=== PATIENT | female | born 1985 | race Caucasian/White ===

== ENCOUNTER 2018-06-07 12:41 | Outpatient (CLI) | payer BC, SELFPAY ==
--- NOTE | 2018-06-07 12:46 | DI.RAD_ITS ---
SYMPTOMS/DIAGNOSIS: RT FOOT PAIN, M79.671 RIGHT FOOT: There is a fracture at the base of the 5th metatarsal, which is only slightly displaced. The fracture involves a small portion of the articular surface toward the base of the 4th metatarsal. No additional fractures are identified. IMPRESSION: Mildly displaced fracture of the base of the 5th metatarsal.
== END 2018-06-07 13:01 ==
PROVIDERS: PCP Internal Medicine; Visit Provider Family Medicine
DX: M79.671 Pain in right foot (principal); S92.351B Displaced fracture of fifth metatarsal bone, right foot, initial encounter for open fracture; Y99.9 Unspecified external cause status
CPT/HCPCS: 73630

== ENCOUNTER 2018-06-07 20:30 | Emergency (ER) | payer BC, SELFPAY ==
[2018-06-07 20:42] VITALS: BP 134/75; PULSE 79; RESP 16; TEMP 36.7; O2SAT 95
--- NOTE | 2018-06-07 20:44 | W.ED.GENAD ---
Discharge Plan Disposition Patient Disposition: HOME Condition: Stable Discharge Details Chief Complaint: Orthopedic Clinical Impression: Fracture of 5th metatarsal Primary Care Provider: Khalif Morris ED Provider: Kevin Nick Home Meds and New Rx's Prescriptions: No Action No Known Home Meds RF: 0 Discharge Instructions Instructions: Foot Fracture in Adults (ED) Additional Instructions: call orthopedics on Sunday for an appointment you can take 1000mg tylenol and 600mg ibuprofen every 6 hours for pain as needed Referrals: Leonardo Pizano MD [ [facility] STAFF PHYSICIAN] - Discharge Data Discharge Physician: Kevin Nick Medical Decision Making MDM Narrative Medical decision making narrative: 32 yo female states this morning she tripped while walking out to the car and hit her right foot on the ground. did not strike her head or have loc. She saw her pcp who ordered an xray showing a proximal 5th metacarpal fx, but she states no one ever called her with results and she was having pain so came here. The xray was reviewed by me and has proximal 5th metacarpal fx. Has no ankle pain even on rom so do not feel xrays of ankle indicated. Placed in walking boot and will provide crutches to use as needed, and have her f/u with ortho. She declined pain med prescription at this time Differential Diagnosis sprain,strain,fx HPI - General Adult General Mode of arrival: wheelchair. Date/Time Provider Initiated Documentation: 06/07/18 20:30. Limitations to Documentation: no limitations. Information obtained by: patient. History of Present Illness 32 year old F presents to the emergency department with the chief complaint of right foot pain, described as moderate, with intensity rated at 5. Quality is described as aching, and is localized to the right and lower extremity. Patient reports no radiation. Patient started experiencing this hour(s) (12) and it has been constant. Rest improves symptom(s), Movement worsens symptoms . Patient notes no other symptoms.. Patient did receive the following treatments prior to arrival, NSAID Related Data Home Medications Medication Instructions Recorded Confirmed Unknown [No Known Home Meds] 06/07/18 06/07/18 Allergies Allergy/AdvReac Type Severity Reaction Status Date / Time No Known Allergies Allergy Unverified 06/07/18 20:50 Review of Systems Review of Systems All systems reviewed & are unremarkable except as noted in HPI and below Constitutional Denies chills, Denies fever(s) and Denies weakness Eyes Patient Denies loss of vision ENT Denies change in voice Cardiovascular Denies chest pain and Denies dyspnea Respiratory Denies dyspnea Gastrointestinal Denies abdominal pain, Denies nausea and Denies vomiting Genitourinary Denies dysuria Musculoskeletal Denies joint swelling Integumentary/Breasts Denies rash Neurologic Denies loss of vision and Denies weakness Psychiatric Denies depression Endocrine Denies cold intolerance and Denies heat intolerance [facility] Social History Smoking/Tobacco Use Status: Never Exam Const General: no acute distress Orientation: alert HENMT Head: normal to inspection Ears: external ears normal General nose exam: external nose normal Mouth: moist mucous membranes Eyes General: appearance normal, both eyes and all related structures Neck Neck: normal visual inspection Resp Effort & Inspection: normal respiratory effort and able to speak in complete sentences Cardio Rate: regular rate Skin General skin exam: no rashes or lesions noted Neuro General: alert and oriented x3 Extrem General: normal capillary refill and other (pain over proximal 5th metatarsal, full rom of the ankle without pain and no pain toes, 2+ pulses) Psych Mental Status: mental status grossly normal
== END 2018-06-07 21:03 | disposition home or self-care (01) ==
LOC: ER 21:06
PROVIDERS: Emergency Provider Emergency Medicine; PCP Internal Medicine
DX: S92.354A Nondisplaced fracture of fifth metatarsal bone, right foot, initial encounter for closed fracture (principal); W01.0XXA Fall on same level from slipping, tripping and stumbling without subsequent striking against object, initial encounter
CPT/HCPCS: 29505; 99284; 99282; L4361

== ENCOUNTER 2018-06-26 09:35 | Outpatient (CLI) | payer BC, SELFPAY ==
--- NOTE | 2018-06-26 09:22 | DI.RAD_ITS ---
SYMPTOM/DIAGNOSIS: FRACTURE 5TH METATARSAL RIGHT FOOT: When compared with the previous study of 06/07/18 again noted is a mildly displaced fracture of the base of the 5th metatarsal.
== END 2018-06-26 09:55 ==
PROVIDERS: PCP Internal Medicine; Visit Provider Student in an Organized Health Care Education/Training Program
DX: S92.351D Displaced fracture of fifth metatarsal bone, right foot, subsequent encounter for fracture with routine healing (principal)
CPT/HCPCS: 73630

== ENCOUNTER 2021-04-28 15:58 | Outpatient (REF) | payer BC, SELFPAY ==
[2021-04-28 20:53] LABS: Abs Immature Grans 0.01 10^3/uL (0.0-0.06); Absolute Basophil Count 0.05 10^3/uL (0.0-0.2); Absolute Eosinophil Count 0.13 10^3/uL (0.0-0.7); Absolute Lymphocyte Count 1.57 10^3/uL (1.2-3.4); Absolute Monocyte Count 0.58 10^3/uL (0.1-0.8); Absolute Neutrophil Count 5.28 10^3/uL (1.2-6.7); Basophils % 0.7; Eosinophils % 1.7; HCT 42.8 % (36.0-46.0); HGB 14.2 g/dL (11.2-15.7); Immature Grans % 0.1; Lymphocytes % 20.6; MCH 28.8 pg (27.0-33.0); MCHC 33.2 % (32.0-36.0); MCV 86.8 fL (80-95); MPV 12.5 fL (8.0-11.0); Monocytes % 7.6; Neutrophils % 69.3; Nucleated RBC 0 %; Platelet Count 199 10^3/uL (130-400); RBC 4.93 10^6/uL (3.93-5.22); WBC 7.62 10^3/uL (4.4-10.8)
[2021-04-28 21:31] LABS: Iron 77 ug/dL (50-170); Total Iron Binding Capacity 371 ug/dL (250-450); Transferrin Sat 21 % (15-50)
[2021-04-28 21:37] LABS: TSH (W/Ref FT4) 0.87 uIU/mL (0.36-3.74)
== END 2021-04-28 15:59 | disposition home or self-care (01) ==
LOC: NCHCN 15:58
PROVIDERS: PCP Internal Medicine; Visit Provider Nurse Practitioner Family
DX: N92.6 Irregular menstruation, unspecified (principal); Z00.00 Encounter for general adult medical examination without abnormal findings; L68.0 Hirsutism; E66.9 Obesity, unspecified
CPT/HCPCS: 83540; 83550; 84443; 85025

== ENCOUNTER 2021-05-26 16:45 | Outpatient (REF) | payer BC, SELFPAY ==
[2021-05-26 14:09] LABS: BUN 9 mg/dL (7-18); CREATININE 0.6 mg/dL (0.55-1.02); Chloride 101 mmol/L (98-107); Glucose 214 mg/dL (74-106); Potassium 4.4 mmol/L (3.5-5.1); Sodium 138 mmol/L (136-145)
== END 2021-05-26 16:46 | disposition home or self-care (01) ==
LOC: NCHCN 16:45
PROVIDERS: PCP Internal Medicine; Visit Provider Nurse Practitioner Family
DX: E66.9 Obesity, unspecified (principal); L68.0 Hirsutism
CPT/HCPCS: 80048

== ENCOUNTER 2021-10-27 11:18 | Outpatient (REF) | payer BC, SELFPAY ==
[2021-10-27 16:00] LABS: Anion Gap 11.3 mmol/L (3-11); BUN 14 mg/dL (7-18); CO2 25.7 mmol/L (21.0-32.0); CREATININE 0.7 mg/dL (0.55-1.02); Calcium 9.2 mg/dL (8.5-10.1); Chloride 102 mmol/L (98-107); Glucose 279 mg/dL (74-106); Potassium 4.1 mmol/L (3.5-5.1); Sodium 139 mmol/L (136-145)
== END 2021-10-27 11:19 | disposition home or self-care (01) ==
LOC: NCHCN 11:18
PROVIDERS: PCP Internal Medicine; Visit Provider Nurse Practitioner Family
DX: R73.09 Other abnormal glucose (principal); E66.8 Other obesity; L68.0 Hirsutism
CPT/HCPCS: 80048

== ENCOUNTER 2022-01-24 16:10 | Outpatient (REF) | payer BC, SELFPAY ==
[2022-01-24 17:11] LABS: Hemoglobin A1C 6.8 % (<5.7)
[2022-01-24 17:13] LABS: Calculated LDL 120 mg/dL (<100); Cholesterol 185 mg/dL (<200); HDL Cholesterol 45 mg/dL (40-60); Triglyceride 104 mg/dL (<150)
== END 2022-01-24 16:11 | disposition home or self-care (01) ==
LOC: NCHCN 16:10
PROVIDERS: PCP Internal Medicine; Visit Provider Nurse Practitioner Family
DX: E11.9 Type 2 diabetes mellitus without complications (principal); L68.0 Hirsutism; E66.9 Obesity, unspecified
CPT/HCPCS: 80061; 83036

== ENCOUNTER 2022-05-18 12:15 | Outpatient (REF) | payer BC, SELFPAY ==
--- NOTE | 2022-05-18 09:30 | PAPFT_PTH ---
PATIENT: Rosa Francis LOC: [facility] U#:[id number] AGE/SX: 36/F ROOM: RE05/18/[address]: Pamela Pace : 1985 BED: DIS: 05/18/2022 SPEC #: [id number] RECD: 05/18/22 17:02 STATUS: DIEGO REChio #: [id number] DAMIEN: 05/18/22 09:[address]: Pamela Pace DEPT: [facility] Cytology RECD BY: Deann Payne ENTERED: 05/18/22 17:02 SP TYPE: PAPFT RENETTA DR: Khalif Morris Tissues: 1 - CX/ENDOCX FOR PAP SMEARS Procedures: PAP THIN PREP/[facility] Screening HPV DNA PROBE Comments: [id number]
== END 2022-05-18 12:16 | disposition home or self-care (01) ==
LOC: NCHCN 12:15
PROVIDERS: PCP Internal Medicine; Visit Provider Nurse Practitioner Family
DX: Z00.00 Encounter for general adult medical examination without abnormal findings (principal); Z12.4 Encounter for screening for malignant neoplasm of cervix; Z11.51 Encounter for screening for human papillomavirus (HPV); Z01.419 Encounter for gynecological examination (general) (routine) without abnormal findings
CPT/HCPCS: 88142; 87624

== ENCOUNTER 2022-11-16 12:27 | Outpatient (REF) | payer BC, SELFPAY ==
[2022-11-16 14:19] LABS: Anion Gap 11.5 mmol/L (3-11); BUN 14 mg/dL (7-18); CO2 24.5 mmol/L (21.0-32.0); CREATININE 0.6 mg/dL (0.55-1.02); Calcium 9.1 mg/dL (8.5-10.1); Chloride 102 mmol/L (98-107); Estimated GFR 117.75 (mL/min/1.73m2); Glucose 93 mg/dL (74-106); Sodium 138 mmol/L (136-145)
== END 2022-11-16 12:28 | disposition home or self-care (01) ==
LOC: NCHCN 12:27
PROVIDERS: PCP Internal Medicine; Visit Provider Nurse Practitioner Family
DX: N92.6 Irregular menstruation, unspecified (principal); E11.9 Type 2 diabetes mellitus without complications; E66.8 Other obesity; L68.0 Hirsutism
CPT/HCPCS: 80048

== ENCOUNTER 2024-03-11 19:08 | Outpatient (REF) | payer BC, SELFPAY ==
[2024-03-11 15:42] LABS: Bilirubin Negative (Negative); Blood Negative (Negative); Clarity Clear (Clear); Glucose Negative (Negative); Ketones Negative (Negative); Leukocyte Esterase Negative (Negative); Nitrite Negative (Negative); Specific Gravity 1.015 (1.005-1.025); Urobilinogen 0.2 mg/dL (Up to 0.2)
[2024-03-11 16:37] LABS: ALT 38 U/L (14-59); AST 22 U/L (15-37); Albumin 4.8 g/dL (3.4-5.0); Alkaline Phosphatase 61 U/L (46-116); Anion Gap 9.6 mmol/L (3-11); BUN 9 mg/dL (7-18); Bilirubin, Total 0.5 mg/dL (0.2-1.0); CO2 27.4 mmol/L (21.0-32.0); CREATININE 0.6 mg/dL (0.55-1.02); Calcium 9.9 mg/dL (8.5-10.1); Calculated LDL 147 mg/dL (<100); Chloride 99 mmol/L (98-107); Cholesterol 220 mg/dL (<200); Estimated GFR 117.02 (mL/min/1.73m2); Glucose 132 mg/dL (74-106); HDL Cholesterol 61 mg/dL (40-60); Potassium 4.7 mmol/L (3.5-5.1); Sodium 136 mmol/L (136-145); Total Protein 9.1 g/dL (6.4-8.2); Triglyceride 63 mg/dL (<150)
[2024-03-11 16:39] LABS: COMMENT (LAB VIEW ONLY) 31.66 mg/dL; Microalb ug/mg Crea 20.2 ug/mg Cr
== END 2024-03-11 19:09 | disposition home or self-care (01) ==
LOC: NCHCN 19:08
PROVIDERS: PCP Nurse Practitioner Family; Visit Provider Nurse Practitioner Family
DX: E11.9 Type 2 diabetes mellitus without complications (principal)
CPT/HCPCS: 80053; 80061; 81003; 82043; 82570

== ENCOUNTER 2025-06-18 13:29 | Outpatient (REF) | payer BC, SELFPAY ==
[2025-06-18 20:29] LABS: Anion Gap 10.5 mmol/L (3-11); BUN 11 mg/dL (7-18); CO2 26.5 mmol/L (21.0-32.0); Calcium 9.2 mg/dL (8.5-10.1); Chloride 99 mmol/L (98-107); Estimated GFR 116.30 (mL/min/1.73m2); Glucose 169 mg/dL (74-106); Potassium 4.5 mmol/L (3.5-5.1); Sodium 136 mmol/L (136-145)
[2025-06-18 20:52] LABS: COMMENT (LAB VIEW ONLY) 105.21 mg/dL; Microalb ug/mg Crea 13.8 ug/mg Cr
[2025-06-18 20:53] LABS: Glucose Negative (Negative)
== END 2025-06-18 13:30 | disposition home or self-care (01) ==
LOC: NCHCN 13:29
PROVIDERS: PCP Nurse Practitioner Family; Visit Provider Nurse Practitioner Family
DX: E11.9 Type 2 diabetes mellitus without complications (principal); L68.0 Hirsutism
CPT/HCPCS: 80048; 81003; 82043; 82570